=== PATIENT | female | born 1990 | race Hispanic/Latino ===

== ENCOUNTER 2019-09-27 17:56 | Emergency (ER) | payer MEDICAID ==
[~2019-09-27 17:56] MED LIST: PNV1TABL17 PO
[2019-09-27] MEDS ORDERED: SODIUM CHLORIDE 0.9% 1000ML 1,000 ML IV ONE (18:45)
[2019-09-27 18:59] LABS: BASOPHILS % (AUTO) 0.2 % (0.0-5.0); EOSINOPHILS % (AUTO) 0.7 % (0.0-8.0); HEMATOCRIT 36.8 % (36-48); LYMPHOCYTES % (AUTO) 13.1 % (21.0-51.0); MEAN CORPUSCULAR HEMOGLOBIN 30.5 pg (27.0-33.0); MEAN CORPUSCULAR HGB CONC 34.8 g/dL (32.0-36.0); MEAN CORPUSCULAR VOLUME 87.8 fL (79-99); MONOCYTES % (AUTO) 4.3 % (3.0-13.0); NEUTROPHILS % (AUTO) 81.2 % (40.0-77.0); PLATELET COUNT (AUTO) 364 K/uL (130-400); RED BLOOD CELL COUNT(AUTO) 4.19 MIL/uL (4.00-5.50); RED CELL DISTRIBUTION WIDTH 12.3 % (11.0-15.5)
[2019-09-27 18:59] LABS: APPEARANCE,URINE Clear (CLEAR); BILIRUBIN,URINE Negative (NEGATIVE); COLOR,URINE Yellow (YELLOW); GLUCOSE, URINE (UA) Negative (NEGATIVE); KETONES,URINE Negative (NEGATIVE); LEUKOCYTE ESTERASE ,URINE Trace (NEGATIVE); NITRATE,URINE Negative (NEGATIVE); OCCULT BLOOD,URINE Negative (NEGATIVE); PH,URINE 6.5 (5.0-8.0); PROTEIN,URINE Negative (NEGATIVE); UROBILINOGEN,URINE 0.2 mg/dL (0.2-1.0)
[2019-09-27 19:12] LABS: CREATININE 0.6 mg/dL (0.5-1.5); POTASSIUM 3.5 mmol/L (3.5-5.1)
[2019-09-27 19:22] LABS: BACTERIA,URINE Few /HPF (None Seen); RBC,URINE 0-1 /HPF (0-1); SQUAMOUS EPITHELIAL CELL,UR Moderate /HPF (0-2)
== END 2019-09-27 21:05 | disposition home or self-care (01) ==
LOC: EDH 17:56
DX: O20.0 Threatened abortion (principal); Z3A.10 10 weeks gestation of pregnancy; Z87.891 Personal history of nicotine dependence
CPT/HCPCS: 36415; 76705; 76801; 80048; 81001; 84702; 85025; 86900; 86901; 96360; 99285; J7030

== ENCOUNTER 2020-04-07 17:48 | Observation (INO) | payer MEDICAID ==
[~2020-04-07] VITALS: Ht 157.5 cm; Wt 87.1 kg
== END 2020-04-07 19:35 | disposition home or self-care (01) ==
LOC: LDH 17:48
PROVIDERS: ADMIT Specialist; ATTEND Specialist
DX: Z34.93 Encounter for supervision of normal pregnancy, unspecified, third trimester (principal); Z3A.38 38 weeks gestation of pregnancy
CPT/HCPCS: 59025; 76819; G0378 ×2; G0379

== ENCOUNTER 2020-04-17 03:52 | Inpatient (IN) | payer MEDICAID ==
[~2020-04-17] VITALS: Ht 157.5 cm; Wt 87.1 kg
[2020-04-17] MEDS ORDERED: LACTATED RINGERS 1000ML 1,000 ML IV SCH (04:00)
[2020-04-17] MEDS ORDERED: LACTATED RINGERS 1000ML 1,000 ML IV PRN (04:15)
[2020-04-17] MEDS ORDERED: PREN-196 PO (04:37)
[2020-04-17 04:38] VITALS: BP 137/78
[2020-04-17 04:44] LABS: HEMATOCRIT 33.1 % (36-48); MEAN CORPUSCULAR HEMOGLOBIN 28.2 pg (27.0-33.0); MEAN CORPUSCULAR HGB CONC 32.6 g/dL (32.0-36.0); MEAN CORPUSCULAR VOLUME 86.4 fL (79-99); RED BLOOD CELL COUNT(AUTO) 3.83 MIL/uL (4.00-5.50); RED CELL DISTRIBUTION WIDTH 14.1 % (11.0-15.5); WHITE BLOOD COUNT (AUTO) 13.3 K/uL (4.8-10.8)
[2020-04-17] MEDS ORDERED: LACTATED RINGERS 500 ML 500 ML IV PRN (04:45)
[2020-04-17] MEDS ORDERED: EPHEDRINE SULFATE 50 MG/ML AMPULE IVP PRN (04:45)
[2020-04-17] MEDS ORDERED: ROPIVACAINE 0.2% 100ML VIAL 100 ML EP SCH (04:45)
[2020-04-17] MEDS ORDERED: NALOXONE HCL 0.4 MG/1 ML ML IV PRN (04:45)
[2020-04-17 05:57] LABS: APPEARANCE,URINE Cloudy (CLEAR); BILIRUBIN,URINE Negative (NEGATIVE); COLOR,URINE Orange (YELLOW); GLUCOSE, URINE (UA) Negative (NEGATIVE); KETONES,URINE Negative (NEGATIVE); LEUKOCYTE ESTERASE ,URINE Small (NEGATIVE); NITRATE,URINE Negative (NEGATIVE); OCCULT BLOOD,URINE Large (NEGATIVE); PROTEIN,URINE POS 1+ mg/dL (NEGATIVE); UROBILINOGEN,URINE 0.2 mg/dL (0.2-1.0)
[2020-04-17 06:02] LABS: BACTERIA,URINE Rare /HPF (None Seen); RBC,URINE 26-50 /HPF (0-1)
[2020-04-17 06:03] LABS: MUCUS,URINE Rare LPF (None Seen); SQUAMOUS EPITHELIAL CELL,UR Moderate /HPF (0-2)
[2020-04-17 06:04] LABS: AMPHET/METH SCREEN,URINE NEGATIVE (NEGATIVE); BARBITURATE SCREEN, URINE NEGATIVE (NEGATIVE); BENZODIAZEPINES SCREEN,URINE NEGATIVE (NEGATIVE); CANNABINOID SCREEN,URINE NEGATIVE (NEGATIVE); COCAINE SCREEN,URINE NEGATIVE (NEGATIVE); OPIATE SCREEN,URINE NEGATIVE (NEGATIVE); PHENCYCLIDINE SCREEN,URINE NEGATIVE (NEGATIVE)
[2020-04-17] MEDS ORDERED: OXYTOCIN-LR 20 UNITS/1000 ML 1,000 ML IV ONE (06:44)
[2020-04-17] MEDS ORDERED: OXYTOCIN-LR 20 UNITS/1000 ML 1,000 ML IV SCH ×2 (06:45→09:30)
[2020-04-17] MEDS ORDERED: MEASLES/MUMPS/RUBELLA VACCINE, LIVE 0.5 ML/VIAL SQ PRN (09:30)
[2020-04-17] MEDS ORDERED: ACETAMINOPHEN WITH CODEINE 1 TAB TAB PO PRN (09:30)
[2020-04-17] MEDS ORDERED: ACETAMINOPHEN 325 MG TAB PO PRN (09:30)
[2020-04-17] MEDS ORDERED: LANOLIN 30GM OINTMENT TP PRN (09:30)
[2020-04-17] MEDS ORDERED: WITCH HAZEL 1 PAD TP PRN (09:30)
[2020-04-17] MEDS ORDERED: DIPH,PERTUSS(ACELL),TET VAC/PF 0.5 ML VIAL IM PRN (09:30)
[2020-04-17] MEDS ORDERED: BENZOCAINE/LANOLIN/ALOE VERA 60 ML AEROSOL TP PRN (09:30)
[2020-04-17 10:57] LABS: RAPID PLASMA REAGIN NONREACTIVE (NONREACTIVE)
[2020-04-17 11:16] VITALS: BP 117/70
[2020-04-17] MEDS: IBUPROFEN 600 MG TABLET PO PRN ×2 (13:16→19:59)
[2020-04-17 16:17] VITALS: BP 125/70
[2020-04-17 20:00] VITALS: BP 98/53
[2020-04-17] MEDS: DOCUSATE SODIUM 100 MG CAP PO SCH (20:00)
[2020-04-17 23:00] VITALS: BP 116/60
[2020-04-18] MEDS: IBUPROFEN 600 MG TABLET PO PRN ×2 (03:52→10:54)
[2020-04-18 03:55] VITALS: BP 116/75
[2020-04-18 08:10] VITALS: BP 98/62
[2020-04-18] MEDS: DOCUSATE SODIUM 100 MG CAP PO SCH (10:53)
[2020-04-18 12:30] VITALS: BP 114/66
[2020-04-18 13:43] LABS: HEPATITIS Bs ANTIGEN SCREEN P SEE SEPARATE REPORT (Negative)
== END 2020-04-18 13:46 | disposition home or self-care (01) | DRG 560 ==
LOC: EDH 03:52 → LDH 03:53 → OBSVTOIN 03:53 → WSH 11:15
PROVIDERS: ADMIT Specialist; ATTEND Specialist
PROC: 10E0XZZ Delivery of Products of Conception, External Approach (ICD-10-PCS; principal; 2020-04-17)
PROC: 0UQGXZZ Repair Vagina, External Approach (ICD-10-PCS; 2020-04-17)
DX: O69.1XX0 Labor and delivery complicated by cord around neck, with compression, not applicable or unspecified (principal); O70.0 First degree perineal laceration during delivery; Z3A.40 40 weeks gestation of pregnancy; Z37.0 Single live birth
CPT/HCPCS: 36415; 80305; 81001; 85027; 86592; 86701; 86850; 86900; 86901; 87340; 87390; A4314; A4606; G0378; J2590; J7120

== ENCOUNTER 2022-03-03 15:27 | Emergency (ER) | payer MEDICAID ==
[~2022-03-03] VITALS: Ht 157.5 cm; Wt 81.6 kg
[2022-03-03 17:20] LABS: BASOPHILS % (AUTO) 0.3 % (0.0-5.0); EOSINOPHILS % (AUTO) 0.1 % (0.0-8.0); LYMPHOCYTES % (AUTO) 15.4 % (21.0-51.0); MEAN CORPUSCULAR HEMOGLOBIN 31.2 pg (27.0-33.0); MEAN CORPUSCULAR HGB CONC 34.4 g/dL (32.0-36.0); MEAN CORPUSCULAR VOLUME 90.5 fL (79-99); MONOCYTES % (AUTO) 5.3 % (3.0-13.0); NEUTROPHILS % (AUTO) 78.4 % (40.0-77.0); PLATELET COUNT (AUTO) 385 K/uL (130-400); RED BLOOD CELL COUNT(AUTO) 4.75 MIL/uL (4.00-5.50); RED CELL DISTRIBUTION WIDTH 12.7 % (11.0-15.5); WHITE BLOOD COUNT (AUTO) 15.4 K/uL (4.8-10.8)
[2022-03-03] MEDS ORDERED: ACETAMINOPHEN 500 MG TABLET PO ONE (17:30)
[2022-03-03 17:34] LABS: CREATININE 0.8 mg/dL (0.5-1.5); POTASSIUM 3.6 mmol/L (3.5-5.1)
[2022-03-03 17:52] LABS: APPEARANCE,URINE CLEAR (CLEAR); BILIRUBIN,URINE NEGATIVE (NEGATIVE); COLOR,URINE COLORLESS (YELLOW); GLUCOSE, URINE (UA) NEGATIVE (NEGATIVE); KETONES,URINE NEGATIVE (NEGATIVE); LEUKOCYTE ESTERASE ,URINE 25 Leu/uL (NEGATIVE); NITRATE,URINE NEGATIVE (NEGATIVE); OCCULT BLOOD,URINE NEGATIVE (NEGATIVE); PH,URINE 6.5 (5.0-8.0); PROTEIN,URINE NEGATIVE (NEGATIVE); UROBILINOGEN,URINE 0.2 mg/dL (0.2-1.0)
[2022-03-03 17:53] LABS: ALBUMIN 3.8 g/dL (3.5-5.0); TOTAL PROTEIN, SERUM 7.6 g/dL (6.0-8.3)
[2022-03-03 17:56] LABS: RBC,URINE 0-1 /HPF (0-1); SQUAMOUS EPITHELIAL CELL,UR FEW /HPF (0-2); WBC,URINE 0-1 /HPF (0-1)
[2022-03-03 17:57] LABS: HCG,QUALITATIVE URINE NEGATIVE (NEGATIVE)
[2022-03-03] MEDS ORDERED: SULF1TAB42 PO (18:28)
[2022-03-03 18:48] VITALS: BP 123/71
== END 2022-03-03 18:48 | disposition home or self-care (01) ==
LOC: EDH 15:27
DX: N39.0 Urinary tract infection, site not specified (principal); F41.9 Anxiety disorder, unspecified; F45.8 Other somatoform disorders; Z79.899 Other long term (current) drug therapy
CPT/HCPCS: 36415; 80053; 81001; 81025; 84484; 85025; 93005

== ENCOUNTER 2022-10-05 11:53 | Emergency (ER) | payer MEDICAID ==
[~2022-10-05] VITALS: Ht 157.5 cm; Wt 79.8 kg
[~2022-10-05 11:53] MED LIST changes: -PNV1TABL17 PO; +SULF1TAB42 PO
[2022-10-05 12:34] VITALS: BP 145/93; PULSE 88; RESP 20
[2022-10-05] MEDS ORDERED: ALPRAZOLAM 0.25 MG TABLET PO ONE (13:00)
[2022-10-05 13:34] LABS: INFLUENZA TYPE A Negative For Type A (NEGATIVE); INFLUENZA TYPE B Negative For Type B (NEGATIVE)
[2022-10-05 14:54] LABS: ADD UA MICROSCOPIC NO; APPEARANCE,URINE CLEAR (CLEAR); BILIRUBIN,URINE NEGATIVE (NEGATIVE); COLOR,URINE LIGHT-YELLOW (YELLOW); GLUCOSE, URINE (UA) NEGATIVE (NEGATIVE); KETONES,URINE NEGATIVE (NEGATIVE); LEUKOCYTE ESTERASE ,URINE NEGATIVE Leu/uL (NEGATIVE); NITRATE,URINE NEGATIVE (NEGATIVE); OCCULT BLOOD,URINE NEGATIVE (NEGATIVE); PH,URINE 5.5 (5.0-8.0); PROTEIN,URINE NEGATIVE (NEGATIVE); UROBILINOGEN,URINE 0.2 mg/dL (0.2-1.0)
[2022-10-05 14:55] LABS: HCG,QUALITATIVE URINE NEGATIVE (NEGATIVE)
== END 2022-10-05 15:22 | disposition home or self-care (01) ==
LOC: EDH 11:53
DX: F41.1 Generalized anxiety disorder (principal); F32.A Depression, unspecified
CPT/HCPCS: 81003; 81025; 87804; 87880